=== PATIENT | female | born 1950 | race Hispanic/Latino ===

== ENCOUNTER 2020-01-22 15:21 | Emergency (ER) | payer OTHER ==
[2020-01-22] MEDS ORDERED: LIDOCAINE HCL-MPF 1% 2ML VIAL ONE (15:42)
[2020-01-22] MEDS ORDERED: TETANUS/DIPHTHERIA TOXOID [ADULT] 0.5 ML VIAL IM ONE (15:43)
[2020-01-22] MEDS ORDERED: CEPHALEXIN 500 MG CAPSULE ONE (16:07)
== END 2020-01-22 17:19 | disposition home or self-care (01) ==
LOC: EDH 15:21
DX: S51.012A Laceration without foreign body of left elbow, initial encounter (principal); K21.9 Gastro-esophageal reflux disease without esophagitis; E03.9 Hypothyroidism, unspecified; Z90.49 Acquired absence of other specified parts of digestive tract; W18.39XA Other fall on same level, initial encounter; Y93.89 Activity, other specified; Y92.098 Other place in other non-institutional residence as the place of occurrence of the external cause; Y99.8 Other external cause status
CPT/HCPCS: 12031; 73080; 90471; 90714; 99283; J3490